=== PATIENT | female | born 1995 | race Caucasian/White ===

== ENCOUNTER 2020-12-20 23:45 | Emergency (ER) | payer MEDICAID ==
--- NOTE | 2020-12-21 00:02 | EDM.PDOC ---
ED HPI GENERAL MEDICAL PROBLEM - General Chief Complaint: Skin Complaint Stated Complaint: RASH ON HAND/HIP; DIZZINESS Time Seen by Provider: 12/21/20 00:02 Source of Information: Reports: Patient History Limitations: Reports: No Limitations - History of Present Illness INITIAL COMMENTS - FREE TEXT/NARRATIVE: Kailee comes in with a rash on both hands ,itchy and not responding to OTC hydrocortisone. No contact with any allergens. Also had a wound of the buttock for the same period of times. Apparently started with a blister. It is severely painful. bilateral hands Pain Score (Numeric/FACES): 7 left buttock Pain Score (Numeric/FACES): 9 - Related Data Allergies Allergy/AdvReac Type Severity Reaction Status Date / Time aripiprazole Allergy Hives [facility]20 [facility] Home Meds: Home Meds . [Unable to Verify Home Med List] 12/21/20 [History] ED ROS GENERAL - Review of Systems Review Of Systems: Comprehensive ROS is negative, except as noted in HPI. ED EXAM, SKIN/RASH Exam: See Below Text/Narrative:: Uniformly red rash in the glove distribution.blanches with pressure. Also,a partial thicnkness wound about 5 x 5 cm,red,warm and tender. General Appearance: Alert, WD/WN Head: Atraumatic Neck: Normal Inspection Respiratory/Chest: No Respiratory Distress Course - Vital Signs Last Recorded V/S: Last Vital Signs Temp 96.7 F L 12/20/20 23:47 Pulse 102 H 12/20/20 23:47 Resp 17 12/20/20 23:47 BP 144/94 H 12/20/20 23:47 Pulse Ox 100 12/20/20 23:47 Departure - Departure Time of Disposition: 00:02 Disposition: Home, Self-Care 01 Condition: Good Clinical Impression: Atopic dermatitis, Cellulitis - Discharge Information Instructions: Wound Infection, Contact Dermatitis Referrals: Yumiko Pinon PA-C [Primary Care Provider] - Forms: ED Department Discharge Additional Instructions: Take the Prednisone 1 tab 2 x a day. Take the Cephalexin 1 capsule 3 x day. You can take Tylenol 1000mg and Ibuprofen 600mg for pain and discomfort every 8 hours. Continue cleaning your wound at the buttock. Follow up with your Primary Care Provider. Call if you have any questions or come back to the Emergency Room if symptoms get acutely worse. Sepsis Event Note (ED) - Focused Exam Vital Signs: Vital Signs Temp Pulse Resp BP Pulse Ox 12/20/20 23:47 96.7 F L 102 H 17 144/94 H 100 - Problem List & Annotations (1) Atopic dermatitis SNOMED Code(s): 09572645 Code(s): L20.9 - ATOPIC DERMATITIS, UNSPECIFIED Status: Acute (2) Cellulitis SNOMED Code(s): 518710441 Code(s): L03.90 - CELLULITIS, UNSPECIFIED Status: Acute - Problem List Review Problem List Initiated/Reviewed/Updated: Yes - Assessment/Plan Plan: Prednisone 20 mg BID x 5d. Cephalexin 500 mg tid x 1 week. Follow with PCP in 1 week
[2020-12-21] MEDS ORDERED: predniSONE 20 MG Tab PO ONE (00:08)
[2020-12-21] MEDS ORDERED: Cephalexin 500 MG Cap PO ONE (00:08)
== END 2020-12-21 00:20 | disposition home or self-care (01) ==
LOC: FB.ED 23:45
DX: L20.9 Atopic dermatitis, unspecified (principal); L03.114 Cellulitis of left upper limb; L03.113 Cellulitis of right upper limb; Z88.8 Allergy status to other drugs, medicaments and biological substances
CPT/HCPCS: 99282; 99283; A9270-GY; J7512

== ENCOUNTER 2023-04-06 17:03 | Emergency (ER) | payer MEDICAID ==
[2023-04-06] MEDS ORDERED: Ondansetron 4 MG Tab.DIS PO ONE (17:04)
[2023-04-06] MEDS ORDERED: Ondansetron 4 MG/2 ML SDV IVPUSH ONE (17:46)
[2023-04-06] MEDS ORDERED: Ketorolac 30 MG/ML SDV IVPUSH ONE (17:46)
[2023-04-06] MEDS ORDERED: Sodium Chloride 0.9% 1,000 ML IV ONE (17:46)
[2023-04-06 18:05] LABS: BASOPHILS PERCENT AUTO 0.7 % (0.2-1.5); EOSINOPHILS ABSOLUTE AUTO 0.1 x10-3/uL (0.0-0.8); EOSINOPHILS PERCENT AUTO 1.3 % (0.6-8.1); HEMATOCRIT 32.2 % (34.2-48.2); LYMPHOCYTES ABSOLUTE AUTO 0.9 x10-3/uL (1.0-4.4); LYMPHOCYTES PERCENT AUTO 14.4 % (18.4-52.1); MEAN CORPUSCULAR HEMOGLOBIN 20.9 pg (23.9-33.9); MEAN CORPUSCULAR HGB CONC 31.1 g/dL (31.9-34.8); MEAN CORPUSCULAR VOLUME 67.4 fL (76.7-100.5); MONOCYTES ABSOLUTE AUTO 0.6 x10-3/uL (0.3-1.0); MONOCYTES PERCENT AUTO 9.5 % (4.4-15.7); NEUTROPHILS ABSOLUTE AUTO 4.4 x10-3/uL (1.5-6.3); NEUTROPHILS PERCENT AUTO 74.1 % (30.8-76.2); PLATELET COUNT,PLT 314 x10(3)uL (151-488); RED BLOOD CELL COUNT 4.78 x10(6)uL (3.60-5.20); RED CELL DISTRIBUTION WIDTH 16.7 % (12.3-16.5)
[2023-04-06 18:08] LABS: BLOOD UREA NITROGEN,BUN 7 mg/dL (7-18); CALCIUM 9.3 mg/dL (8.6-10.2); CARBON DIOXIDE,CO2 28 mmol/L (21-32); CHLORIDE,CL 103 mmol/L (100-110); CREATININE 0.7 mg/dL (0.55-1.02); EST CRCL DRUG DOSING (CG) 90.29 mL/min; ESTIMATED GFR 121 mL/min (>60); GLUCOSE RANDOM 96 mg/dL (80-116); POTASSIUM,K 3.8 mmol/L (3.5-5.3); SODIUM,NA 139 mmol/L (135-145)
[2023-04-06 18:09] LABS: APPEARANCE,URINE CLOUDY (CLEAR); BILIRUBIN,URINE SMALL (NEGATIVE); COLOR,URINE YELLOW (YELLOW); GLUCOSE,URINE NORMAL (NORMAL); KETONES,URINE NEGATIVE (NEGATIVE); LEUKOCYTE ESTERASE,URINE NEGATIVE (NEGATIVE); NITRITE,URINE NEGATIVE (NEGATIVE); OCCULT BLOOD,URINE MODERATE (NEGATIVE); PROTEIN,URINE NEGATIVE (NEGATIVE); RBC,URINE 0-5 (0-5); SQUAMOUS EPITHELIAL CELLS,UR MODERATE (NS,R,O); UROBILINOGEN,URINE NORMAL (NEGATIVE); WBC,URINE 0-5 (0-5)
[2023-04-06 18:09] LABS: LIPASE 30 U/L (16-77)
[2023-04-06 18:10] LABS: C-REACTIVE PROTEIN < 0.2 mg/dL (0.5-0.9)
[2023-04-06 18:10] LABS: BACTERIA,URINE FEW (NS); MUCUS,URINE MANY (NS)
[2023-04-06 18:14] LABS: ALANINE AMINOTRANSFERASE,ALT 24 U/L (12-36); ALBUMIN 3.7 g/dL (3.5-5.2); ALKALINE PHOSPHATASE 77 IU/L (56-112); ASPARTATE AMNIOTRANSFERASE,AST 21 IU/L (5-25); BILIRUBIN TOTAL 0.4 mg/dL (0.1-1.3); PROTEIN TOTAL,TP 7.6 g/dL (6.0-8.0)
[2023-04-06] MEDS: Alum Hydroxide/Mag Hydroxide 30 ML, Lidocaine 2% 15 ML PO ONE ×4 (18:36→18:40)
== END 2023-04-06 19:30 | disposition home or self-care (01) ==
LOC: FB.ED 17:03
DX: K29.70 Gastritis, unspecified, without bleeding (principal); D50.9 Iron deficiency anemia, unspecified
CPT/HCPCS: 36415; 80053; 81001; 83690; 85025; 86140; 96361; 96374; 96375; 99284; J1885; J2405; J7030; Q0162; A9270-GY